=== PATIENT | female | born 1995 | race Caucasian/White ===

== ENCOUNTER 2021-11-06 16:30 | Inpatient (IN) ==
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
[2021-11-06 17:20] LABS: Appearance Urine Clear (Clear); Bilirubin Urine Negative (Negative); Blood Urine Negative (Negative); Color Urine Yellow; Glucose Urine UA 2+ (Negative); Ketones Urine Negative (Negative); Leukocyte Esterase Urine Negative (Negative); Nitrite Urine Negative (Negative); Protein Urine Negative (Negative); Specific Gravity Urine 1.007 (1.000-1.030); Urobilinogen Urine Negative (Negative); pH Urine 7.5 (4.5-7.5)
[2021-11-06 17:51] LABS: Basophils # (auto) 0.01 K/uL (0-0.2); Basophils % (auto) 0.1 %; Eosinophils # (auto) 0.04 K/uL (0-0.5); Eosinophils % (auto) 0.4 %; Hematocrit (blood only) 46.9 % (37-47); Hemoglobin 15.7 g/dL (12.0-16.0); Immature Granulocytes # (auto) 0.07 K/uL (0.00-0.02); Immature Granulocytes % (auto) 0.7 %; Lymphocytes % (auto) 21.9 %; Mean Corpuscular Hemoglobin 29.5 pg (25-34); Mean Corpuscular Hgb Conc 33.5 g/dL (32-36); Mean Platelet Volume 9.5 fL (7.4-10.4); Monocytes # (auto) 0.51 K/uL (0.11-0.59); Monocytes % (auto) 5.3 %; Neutrophils # (auto) 6.88 K/uL (1.4-6.5); Neutrophils % (auto) 71.6 %; Platelet Count 340 K/uL (130-400); RDW Coefficient of Variation 14.2 % (11.5-14.5); RDW Standard Deviation 45.8 fL (36.4-46.3); Red Blood Count 5.33 M/uL (4.2-5.4); White Blood Count 9.61 K/uL (4.8-10.8)
[2021-11-06 18:05] LABS: Albumin Globulin Ratio 1.3 (0.9-2); Albumin Level 4.1 gm/dl (3.4-5.0); BUN Creatinine Ratio 14.6 (10-20); Bilirubin,Total 0.3 mg/dl (0.2-1.0); Calcium 9.6 mg/dl (8.5-10.1); Creatinine Clr Calc Pharmacy 102.8 ml/min; Est GFR (African American) 94.6 ml/min; Est GFR (Non-African American) 81.6 ml/min; Globulin 3.2 gm/dl (2.5-4.0); Total Protein 7.3 gm/dl (6.0-8.3)
[2021-11-06 18:44] LABS: Acetaminophen < 3 ug/ml (10-30); Lithium < 0.1 mmol/L (0.6-1.2); Salicylate < 3.0 mg/dl (3.0-30)
[2021-11-06 21:14] LABS: Amphetamines+Metham, Urine Neg (Neg); Barbiturates, Urine Neg (Neg); Benzodiazepine, Urine Neg (Neg); Cocaine, Urine Neg (Neg); MDMA (Ecstacy), Urine Neg (Neg); Methadone, Urine Neg (Neg); Opiate, Urine Neg (Neg); Phencyclidine, Urine Neg (Neg)
[2021-11-06] MEDS ORDERED: SODIUM CHLORIDE 0.65% NA SOLN 45 ML (OCEAN) PRN (22:23)
[2021-11-06] MEDS ORDERED: ACETAMINOPHEN 325 MG TAB PO PRN (22:23)
[2021-11-06] MEDS ORDERED: MAGNESIUM HYDROXIDE SUSP 30 ML UDC PO PRN (22:23)
[2021-11-06] MEDS ORDERED: BISMUTH SUBSALICYLATE LIQD 236 ML PO PRN (22:23)
[2021-11-06] MEDS ORDERED: ALUMINUM/MAGNESIUM SUSP 30 ML UDC PO PRN (22:23)
[2021-11-06] MEDS ORDERED: hydrOXYzine HCl 25 MG TAB PO PRN ×2 (22:23)
[2021-11-07] MEDS: FLUoxetine HCL 20 MG CAP PO SCH (09:10)
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
[2021-11-07] MEDS: DAPAGLIFLOZIN PO SCH (10:36)
[2021-11-07] MEDS: PATIENT'S OWN ORAL CONTRACEPTIVE PO SCH (10:36)
[2021-11-07] MEDS: SPIRONOLACTONE 100 MG TAB PO SCH (21:05)
[2021-11-08] MEDS: DAPAGLIFLOZIN PO SCH (08:54)
[2021-11-08] MEDS: FLUoxetine HCL 20 MG CAP PO SCH (08:55)
[2021-11-08] MEDS: PATIENT'S OWN ORAL CONTRACEPTIVE PO SCH (08:57)
--- NOTE | 2021-11-08 16:15 | Psychiatric Progress Note ---
Date of Service November 08, 2021 Impression / Recommendations Impression 25 yo female with prior dx of MDD, PTSD (won't elaborate on symptoms at this time), and borderline personality disorder. suicide risk level high, continue q15 min suicide checks--past attempts, active SI, guarded, presumed hx of SIB 11/08/21: currently states has some urges to SIB on unit but "manageable", resistant to adding another medication as "I worry more medicine is just more to OD on." Dr. Villasenor has been providing 1 week of meds at a time. (1) Major depression, recurrent: (2) Suicidal ideation: (3) PCOS (polycystic ovarian syndrome): 11/08/21: continue current medication and treatment plan. 11/07/21: The patient was admitted to the [facility] ([facility]) on q15 min checks (behavioral with suicide precautions) for safety. The patient will participate in group, recreational, and milieu therapies and will be offered additional individual and family sessions as clinically appropriate. Risks/benefits/alternatives reviewed re: her current medications. She is ambivalent about changes in Prozac given number of past trials and will reach out to outpatient treating psychiatrist re: preferences. Continue home meds for insulin resistance and elevated testosterone related to PCOS. Inventory Assets Strengths: employed, stable housing, established with outpatient providers Needs: increase insight into condition and coping Risk Factors Assessment : Yes Do You Have Access To A Gun?: No Health Problems: Yes Mental Health Diagnoses: Yes Substance Use Disorders: No Previous Attempt: Yes Family History of Suicide: No Previous Psychiatric Hospitalization: Yes Protective Factors Assessment Zoroastrian Beliefs: Yes Employed: Yes Supportive Family: No Good Rapport with Provider: Yes Interval History Identifying Information MARII TORRES is a 25-year-old F who currently lives in [place], has a history of 1 prior suicide attempt and 2 inpatient hospitalizations, and was admitted on 11/06/21 22:23 on a 201 voluntary commitment for SI with plan to crash her car. Chief Complaint "I guess things are fine. No I really don't want those med changes." Review of Systems Sleep Information Total Hours of Sleep: 6.5 Sleep Comments: pt on q-15 minute checks Meal Information Percent Meal Consumed - Breakfast: 50 Percent Meal Consumed - Lunch: 100 Percent Meal Consumed - Dinner: 100 Subjective Subjective Patient was seen & assessed and interval progress reviewed with treatment team. Patient remains rather blunted in appearance and interactions. States she feels comfortable but doesn't share. Reviewed my discussion with her treating psychiatrist re: possible augmentation strategies (retrial of Wellbutrin at lower dose with Prozac, thyroid suppl, or Ritalin). States that she doesn't want to try Ozempic for weight loss which was provided on an outpatient basis at some point. Physical Exam Psychiatric Orientation: alert and oriented x 3 Apperance: appropriately dressed and appropriately groomed Eye Contact: good eye contact Motor Behavior: no abnormal motor movements Speech: + abnormal rate/rhythm/volume of speech (soft, rote) Affect: + depressed affect Mood: + depressed mood Thought Process: goal directed thought process Thought Content: reality based without delusions Suicidal Thoughts: denies suicidal intent (on unit); + reports suicidal thoughts and + reports suicidal plan Homicidal Thoughts: denies homicidal thoughts Hallucinations: no auditory hallucinations and no visual hallucinations Cognition: attention grossly intact and language grossly intact Estimated Intelligence: consistent with education level Insight: + limited insight Judgement: + limited judgement Vital Signs (Past 24 Hours) Last Vital Signs Temp 36.9 C 11/08/21 06:30 Pulse 79 11/08/21 06:31 Resp 16 11/08/21 06:31 BP 138/91 11/08/21 06:31 Pulse Ox 98 11/06/21 23:17 Results & Data ([facility]) Current Inpatient Medications Current Inpatient Medications: Current Inpatient Medications Acetaminophen (Acetaminophen 325 Mg Tab) 650 mg PO Q4H PRN PRN Reason: Headache or Minor Fever Stop: 12/06/21 22:22 Al Hydrox/Mg Hydrox/Simethicone (Aluminum/Magnesium Susp 30 Ml Udc) 30 ml PO Q4H PRN PRN Reason: GI Upset Stop: 12/06/21 22:22 Bismuth Subsalicylate (Bismuth Subsalicylate Liqd 236 Ml) 15 ml PO PRN PRN PRN Reason: Loose Stool Stop: 12/06/21 22:22 Fluoxetine HCl (Fluoxetine Hcl 20 Mg Cap) 60 mg PO QAM CARLOS Stop: 12/07/21 08:59 Last Admin: 11/08/21 08:55 Dose: 60 mg Documented by: Hydroxyzine HCl (Hydroxyzine Hcl 25 Mg Tab) 50 mg PO HSZ PRN PRN Reason: Insomnia Stop: 12/06/21 22:22 Hydroxyzine HCl (Hydroxyzine Hcl 25 Mg Tab) 25 mg PO Q4H PRN PRN Reason: Anxiety Stop: 12/06/21 22:22 Magnesium Hydroxide (Magnesium Hydroxide Susp 30 Ml Udc) 30 ml PO DAILY PRN PRN Reason: Constipation Stop: 12/06/21 22:22 Miscellaneous (Patient's Own Oral Contraceptive) 1 ea PO DAILY CARLOS Stop: 12/07/21 10:29 Last Admin: 11/08/21 08:57 Dose: 1 ea Documented by: Dapaglifozin-Non- Formulary Patient's Own Med 1 ea PO DAILY CARLOS Stop: 12/07/21 10:29 Last Admin: 11/08/21 08:54 Dose: 1 tab Documented by: Sodium Chloride (Sodium Chloride 0.65% Na Soln 45 Ml ([place])) 1 - 2 sprays NA PRN PRN PRN Reason: Nasal Dryness/Congestion Stop: 12/06/21 22:22 Spironolactone (Spironolactone 100 Mg Tab) 100 mg PO HS CARLOS Stop: 12/07/21 21:59 Last Admin: 11/07/21 21:05 Dose: 100 mg Documented by: Mental Health & Subst Abuse Tx Psychiatrist Name of Psychiatrist: [facility] Dr. Villasenor Psychiatrist's Date of Appointment with Psychiatrist: 11/23/21 Time of Appointment with Psychiatrist: 1:20 p.m. Psychiatric Appointment Comment: Telehealth Therapist Name of Therapist: Rosanna Irving LPC, NCC Therapist's Date of Therapist Appointment: 11/13/21 Time of Therapist Appointment: 11:30 a.m. Therapy Appointment Comment: [address] [place] [address] Trading Analyst Name of Trading Analyst: none Post Discharge Appointments Primary Care Physician Name Of Family Doctor: MERRY Donaldson Primary Care Date of Appointment with PCP: 11/16/21 Time of Appointment with PCP: 1:40 p.m. (arrive at 1:25 p.m.) Provider Appointment Comment: [id number] [facility] Contact Information Discharge Discharge Address: [address], [place], [place]
[2021-11-08] MEDS: SPIRONOLACTONE 100 MG TAB PO SCH (21:37)
[2021-11-09] MEDS: FLUoxetine HCL 20 MG CAP PO SCH (08:56)
[2021-11-09] MEDS: PATIENT'S OWN ORAL CONTRACEPTIVE PO SCH (08:58)
[2021-11-09] MEDS: DAPAGLIFLOZIN PO SCH (08:58)
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
[2021-11-09] MEDS: SPIRONOLACTONE 100 MG TAB PO SCH (21:47)
[2021-11-10] MEDS: PATIENT'S OWN ORAL CONTRACEPTIVE PO SCH (08:42)
[2021-11-10] MEDS: DAPAGLIFLOZIN PO SCH (08:42)
[2021-11-10] MEDS: FLUoxetine HCL 20 MG CAP PO SCH (08:42)
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
[2021-11-10] MEDS: SPIRONOLACTONE 100 MG TAB PO SCH (21:47)
[2021-11-11] MEDS: FLUoxetine HCL 20 MG CAP PO SCH (08:56)
[2021-11-11] MEDS: DAPAGLIFLOZIN PO SCH (08:56)
[2021-11-11] MEDS: PATIENT'S OWN ORAL CONTRACEPTIVE PO SCH (08:57)
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
== END 2021-11-11 10:34 | disposition home or self-care (01) | DRG 885 ==
LOC: ED 16:30 → 3S 22:23